=== PATIENT | male | born 1955 ===

== ENCOUNTER 2018-09-06 20:37 | Emergency (ER) | payer SELFPAY ==
[2018-09-06 20:40] VITALS: BP 153/95; RESP 18; TEMP 97.8; O2SAT 94
--- NOTE | 2018-09-06 21:25 | ED PDOC ---
HPI: Psych/Substance Abuse Time Seen by Provider: 09/06/18 20:53 Chief Complaint (Nursing): Alcohol Ingestion Chief Complaint (Provider): Alcohol Ingestion History Per: Patient History/Exam Limitations: intoxication Current Symptoms Are (Timing): Still Present Additional Complaint(s): Lore Zhao is a 62 year old male with no past medical history, who presents to the emergency department on his own due to excessive alcohol intake, feeling confused and stumbling. Patient admits to drinking heavily but states he feels better now. He is able to provide his address and states that he is from [place] and is returning back on the . Patient has no pain, shortness of breath, fever or chest pain. PMD: No provider Past Medical History Reviewed: Historical Data, Nursing Documentation, Vital Signs Vital Signs: Last Vital Signs Temp 97.8 F 09/06/18 20:38 Pulse 112 H 09/06/18 20:38 Resp 18 09/06/18 20:38 BP 153/95 H 09/06/18 20:38 Pulse Ox 94 L 09/06/18 20:38 - Medical History PMH: No Chronic Diseases - Surgical History Surgical History: No Surg Hx - Family History Family History: States: Unknown Family Hx - Allergies Allergies/Adverse Reactions: Allergies Allergy/AdvReac Type Severity Reaction Status Date / Time No Known Allergies Allergy Verified 09/06/18 20:38 Review of Systems ROS Statement: Except As Marked, All Systems Reviewed And Found Negative Constitutional: Negative for: Fever Cardiovascular: Negative for: Chest Pain Respiratory: Negative for: Shortness of Breath Physical Exam - Reviewed Nursing Documentation Reviewed: Yes Vital Signs Reviewed: Yes - Physical Exam Appears: Positive for: Non-toxic, No Acute Distress (intoxicated but coherent) Head Exam: Positive for: ATRAUMATIC, NORMOCEPHALIC Skin: Positive for: Normal Color Cardiovascular/Chest: Positive for: Regular Rate, Rhythm. Negative for: Murmur Respiratory: Positive for: Normal Breath Sounds. Negative for: Respiratory Distress Neurologic/Psych: Positive for: Alert, Oriented (answering questions appropriately ), Gait (ambulatory without instability) - ECG O2 Sat by Pulse Oximetry: 94 (RA) Pulse Ox Interpretation: Abnormal Medical Decision Making Medical Decision Making: Time: 20:53 A/P: Patient is tolerating PO and is requesting to go home with no indication of illness. Patient is to be discharged. 21:15 Upon reevaluation patient is seen to be tachycardic and agrees to stay pending sobriety. Patient has not consented to IV fluids and labs. 2340 Pt now awake, clnically sober. Pt able to dress himself and ambulate without signs of intoxication or instability. Pt to be discharged home. VItals WNL and HR improved to 94bmp. Scribe Attestation: Documented by Andrey Wolff , acting as a scribe for Linda Green MD. Provider Scribe Attestation: All medical record entries made by the Scribe were at my direction and personally dictated by me. I have reviewed the chart and agree that the record accurately reflects my personal performance of the history, physical exam, medical decision making, and the department course for this patient. I have also personally directed, reviewed, and agree with the discharge instructions and disposition. Disposition - Clinical Impression Clinical Impression: Alcohol abuse - Disposition Disposition Time: 23:50 Condition: IMPROVED Additional Instructions: Seek medical treatment for alcohol addiction. Follow up with primary medical doctor as needed. Do not consume drugs or alcohol. Instructions: Alcohol Abuse and Alcoholism (DC) Forms: [employer] (Upper Sorbian) Print Language: CZECH
[2018-09-06 23:50] VITALS: PULSE 94
== END 2018-09-07 00:06 | disposition home or self-care (01) ==
LOC: H.ER 20:37
DX: F10.10 Alcohol abuse, uncomplicated (principal)